=== PATIENT | male | born 1960 | race Caucasian/White ===

== ENCOUNTER → 2016-09-10 | Outpatient (CLI) | payer BC ==
[~2016-09-10] MED LIST: ACET-1256 PO; ACET-1311 PO; AMOX875T PO; BISA10SU3 PR; CGN1X PO; DIVA125C PO; DOCU100T PO; DPKSP125 PO; Enteral Nutrition Formula PO; HALO5TAB PO; HLDI IM; LANS30TA3 PO; MOMLX PO; MRLP17 PO; NRN600 PO; POLY335019 PO; QUET1TAB34 PO; QUET1TAB37 PO; SNK PO; SODIENE PR; SRQ100 PO; VENL1CAP92 PO; VENL75CA PO
[2016-09-10 09:41] LABS: BASO % 0.1 %; BASO ABS # 0.01 K/uL (0-0.2); COMPLETE YES; EOS % 1.1 %; HEMATOCRIT 42.2 % (42-52); IG% 0.3 %; LYMPH ABS # 1.07 K/uL (1.2-3.4); MEAN CELL VOLUME 88.8 fL (80-100); MEAN CORPUSCULAR HEMOGLOBIN 30.5 pg (25-34); MEAN CORPUSCULAR HGB CONC 34.4 g/dl (32-36); MEAN PLATELET VOLUME 9.7 fL (7.4-10.4); MONO % 7.8 %; NEUT % 79.7 %; PLATELET COUNT 123 K/uL (130-400); RED BLOOD COUNT 4.75 M/uL (4.7-6.1); WHITE BLOOD COUNT 9.72 K/uL (4.8-10.8)
== END | disposition home or self-care (01) ==
LOC: C.LABUPHEI 09:04
PROVIDERS: ATTEND Family Medicine
DX: G93.41 Metabolic encephalopathy (principal)

== ENCOUNTER → 2016-10-08 | Outpatient (CLI) | payer BC ==
[2016-10-08 08:49] LABS: ALT/SGPT 16 U/L (12-78); BLOOD UREA NITROGEN 16 mg/dl (7-18); BUN/CREATININE RATIO 20.3 (10-20); CALCIUM 9.1 mg/dl (8.5-10.1); CARBON DIOXIDE 32 mmol/L (21-32); CHLORIDE 104 mmol/L (98-107); CREATININE 0.78 mg/dl (0.60-1.40); GLUCOSE 97 mg/dl (70-99); POTASSIUM 4.5 mmol/L (3.5-5.1); SODIUM 144 mmol/L (136-145)
[2016-10-08 08:52] LABS: ALKALINE PHOSPHATASE 50 U/L (45-117); AST/SGOT 11 U/L (15-37)
--- NOTE | 2016-10-12 10:37 | CODING QUERY NO DIAGNOSIS ---
TREATMENT RENDERED WITHOUT A DIAGNOSIS : 1960 To promote full compliance with coding requirements relating to patient care, physician participation is requested in all cases of quality assurance engineer uncertainty. Please assist us with providing a diagnosis/symptom for the test(s) below: A diagnosis/symptom was not documented on your Order. A valid diagnosis/symptom is required to bill all insurances. Please remember that we are unable to code a diagnosis of rule out, probable, possible, questionable, or suspected. DOS: 10/08/16 Tests that require a diagnosis: * COMPREHENSIVE METABO DIAGNOSIS: * VALPROIC ACID (DEPAK_. DIAGNOSIS: Provider Signature: Date: Thank you M[facility] Information Management Once completed, please kindly fax back to [phone] For questions please call [phone]
== END ==
LOC: C.LABUPHEI 08:25
PROVIDERS: ATTEND Family Medicine
DX: G93.41 Metabolic encephalopathy (principal); F02.81 Dementia in other diseases classified elsewhere, unspecified severity, with behavioral disturbance

== ENCOUNTER → 2016-11-05 | Outpatient (CLI) | payer BC | LOC: C.LABUPHEI 09:44 | PROVIDERS: ATTEND Family Medicine | DX: R56.9 Unspecified convulsions (principal) ==

== ENCOUNTER → 2016-12-18 | Outpatient (CLI) | payer BC ==
[~2016-12-18] MED LIST changes: +BENZ-88 PO; -CGN1X PO; +DIVA1CAP2 PO; -DPKSP125 PO; +QUET-115 PO; -SRQ100 PO
== END | disposition home or self-care (01) ==
LOC: C.LABUPHEI 09:29
PROVIDERS: ATTEND Family Medicine
DX: R56.9 Unspecified convulsions (principal); F02.81 Dementia in other diseases classified elsewhere, unspecified severity, with behavioral disturbance

== ENCOUNTER → 2016-12-19 | Outpatient (CLI) | payer BC ==
[2016-12-19 08:47] LABS: ALB/GLOB RATIO 1.3 (0.9-2); ALKALINE PHOSPHATASE 49 U/L (45-117); ALT/SGPT 15 U/L (12-78); AST/SGOT 6 U/L (15-37); BLOOD UREA NITROGEN 16 mg/dl (7-18); BUN/CREATININE RATIO 19.8 (10-20); CARBON DIOXIDE 37 mmol/L (21-32); CHLORIDE 105 mmol/L (98-107); CREATININE 0.81 mg/dl (0.60-1.40); GLUCOSE 90 mg/dl (70-99); POTASSIUM 4.9 mmol/L (3.5-5.1); SODIUM 145 mmol/L (136-145)
[2016-12-19 09:05] LABS: CALCIUM 9.6 mg/dl (8.5-10.1)
== END | disposition home or self-care (01) ==
LOC: C.LABUPHEI 08:18
PROVIDERS: ATTEND Family Medicine
DX: R56.9 Unspecified convulsions (principal); Z51.81 Encounter for therapeutic drug level monitoring; Z79.899 Other long term (current) drug therapy

== ENCOUNTER → 2017-01-25 | Outpatient (CLI) | payer BC ==
[2017-01-25 09:12] LABS: HEMATOCRIT 44.3 % (42-52); MEAN CELL VOLUME 90.8 fL (80-100); MEAN CORPUSCULAR HEMOGLOBIN 30.9 pg (25-34); MEAN CORPUSCULAR HGB CONC 34.1 g/dl (32-36); MEAN PLATELET VOLUME 10.2 fL (7.4-10.4); PLATELET COUNT 124 K/uL (130-400); RED BLOOD COUNT 4.88 M/uL (4.7-6.1); WHITE BLOOD COUNT 4.69 K/uL (4.8-10.8)
[2017-01-25 09:23] LABS: BLOOD UREA NITROGEN 17 mg/dl (7-18); BUN/CREATININE RATIO 20.9 (10-20); CARBON DIOXIDE 31 mmol/L (21-32); CHLORIDE 106 mmol/L (98-107); CREATININE 0.81 mg/dl (0.60-1.40); GLUCOSE 83 mg/dl (70-99); POTASSIUM 4.4 mmol/L (3.5-5.1); SODIUM 143 mmol/L (136-145)
[2017-01-25 09:27] LABS: CALCIUM 9.3 mg/dl (8.5-10.1)
[2017-01-25 09:29] LABS: URINE APPEARANCE CLEAR (CLEAR); URINE BILIRUBIN NEG (NEG); URINE COLOR YELLOW; URINE NITRITE NEG (NEG); URINE PH 6.5 (4.5-7.5); URINE SPECIFIC GRAVITY 1.021 (1.000-1.030); UROBILINOGEN NEG (NEG)
[2017-01-25 09:45] LABS: MANUAL MICROSCOPIC REQUIRED? NO; REVIEW REQ? NO
== END ==
LOC: C.LABUPUNI 07:45
PROVIDERS: ATTEND Family Medicine
DX: F02.81 Dementia in other diseases classified elsewhere, unspecified severity, with behavioral disturbance (principal); R56.9 Unspecified convulsions; M62.81 Muscle weakness (generalized)

== ENCOUNTER → 2017-03-20 | Outpatient (CLI) | payer BC ==
[~2017-03-20] MED LIST changes: -BENZ-88 PO; +CGN1X PO; -DIVA1CAP2 PO; +DPKSP125 PO; -QUET-115 PO; +SRQ100 PO
--- NOTE | 2017-04-05 08:56 | CODING QUERY NO DIAGNOSIS ---
TREATMENT RENDERED WITHOUT A DIAGNOSIS 61 To promote full compliance with coding requirements relating to patient care, physician participation is requested in all cases of software project manager uncertainty. Please assist us with providing a diagnosis/symptom for the test(s) below: A diagnosis/symptom was not documented on your Order. A valid diagnosis/symptom is required to bill all insurances. Please remember that we are unable to code a diagnosis of rule out, probable, possible, questionable, or suspected. DOS 03/20/17 Tests that require a diagnosis: * DEPAKOTE LEVEL DIAGNOSIS: Provider Signature: Date: Thank you Tia Galindo Health Information Management Once completed, please kindly fax back to [phone] For questions please call [phone]
== END ==
LOC: C.LABUPUNI 08:02
PROVIDERS: ATTEND Family Medicine
DX: Z51.81 Encounter for therapeutic drug level monitoring (principal)

== ENCOUNTER 2017-03-22 19:21 | Inpatient (IN) | payer BC, OTHER ==
[~2017-03-22] VITALS: Ht 172.7 cm; Wt 76.2 kg
[~2017-03-22 19:21] MED LIST changes: -ACET-1311 PO; -AMOX875T PO; -BISA10SU3 PR; -CGN1X PO; -DIVA125C PO; -HALO5TAB PO; -MOMLX PO; -NRN600 PO; -POLY335019 PO; -SODIENE PR
[2017-03-22] MEDS ORDERED: VANCOMYCIN 1GM/270ML NSS IV STA (19:32)
[2017-03-22] MEDS ORDERED: SODIUM CHLORIDE 0.9% 1000ML 1,000 ML IV ONE (19:32)
[2017-03-22] MEDS ORDERED: PIPERACILLIN/TAZOBACTAM 4.5 GM/100ML D5W IV STA (19:32)
--- NOTE | 2017-03-22 19:42 | EMERGENCY ROOM VISIT NOTE ---
History Report prepared by Eloina Valdez Under the Supervision of: Dr. Iain Ordoñez M.D. First contact with patient: 19:29 Stated Complaint: SOB History of Present Illness This HPI is limited secondary to the mental status of the patient. The patient is a 56 year old male who presents to the Emergency Room via [facility] from [facility]. The staff at [facility] state that the patient was short of breath today, had a low blood pressure, and a temperature of 101.5. These symptoms have been ongoing for roughly the past 6-7 hours. The patient's blood pressure was in the 80's per paramedics. He received a 1 liter bolus of saline prior to arrival. The patient is a DNR. Source of History: EMS Onset: 6-7 hours Position: other (Global) Quality: other (SOB/Fever) Associated Symptoms: + fevers, + SOB Note: Low blood pressure Review of Systems ROS unobtainable secondary to mental status. Past Medical & Surgical Medical Problems: (1) Alzheimer disease (2) Dementia (3) Fecal impaction (4) Hernia (5) Lactic acid increased (6) Past Psych Meds (7) Sepsis Surgical Problems: (1) S/P appendectomy Family History No family history noted Social History Smoking Status: Former Smoker Alcohol Use: none Drug Use: none Marital Status: Housing Status: assisted living Occupation Status: disabled Current/Historical Medications Scheduled Acetaminophen (Tylenol), 650 MG PO HS Benztropine Mesylate (Benztropine Mesylate), 1 MG PO BID Divalproex Sodium (Depakote Sprinkle), 500 MG PO BID Docusate Sodium (Dok), 200 MG PO BID Gabapentin (Gabapentin), 600 MG PO TID Haloperidol (Haldol), 5 MG PO BID Lansoprazole (Prevacid Solutab), 30 MG PO QAM Polyethylene Glycol 3350 (Miralax), 17 GM PO BID Senna (Senna Lax), 8.6 MG PO BID Venlafaxine Hcl (Effexor Xr), 75 MG PO HS [Enteral Nutrition Formula], 1 CAN PO TIDM Scheduled PRN Acetaminophen (Tylenol), 650 MG PO Q6 PRN for Pain Bisacodyl (Dulcolax), 1 SUPP VT DAILY PRN for Constipation Magnesium Hydroxide (Milk of Magnesia), 30 ML PO DAILY PRN for Constipation Sodium Phosphate/Biphosphate (Fleet Enema), 1 EA VT DAILY PRN for Constipation Allergies Coded Allergies: No Known Allergies (Verified , 07/25/16) Physical Exam Vital Signs Date Time Temp Pulse Resp B/P (MAP) Pulse Ox O2 Delivery O2 Flow Rate FiO2 03/22/17 23:57 91 20 83/52 96 Nasal Cannula 2.0 03/22/17 23:31 97 16 73/53 94 Nasal Cannula 2.0 03/22/17 23:00 100 20 82/53 94 Nasal Cannula 2.0 03/22/17 22:56 38.0 NIBP 03/22/17 22:30 94/57 03/22/17 22:21 96 14 94 Nasal Cannula 2.0 03/22/17 22:01 100/65 03/22/17 21:51 107 28 95 Nasal Cannula 2.0 03/22/17 21:31 103/77 03/22/17 21:21 109 23 93 Room Air 03/22/17 21:17 87/54 03/22/17 20:33 39.1 117 21 95/75 96 Nasal Cannula 4.0 03/22/17 20:30 95/75 03/22/17 20:21 116 27 96 03/22/17 20:01 93/60 03/22/17 19:51 115 24 96 03/22/17 19:40 117 20 93/60 96 Nasal Cannula 4.0 03/22/17 19:40 97 Nasal Cannula 4.0 03/22/17 19:39 96 Nasal Cannula 4.0 03/22/17 19:32 116 03/22/17 19:31 111/68 Physical Exam GENERAL: Patient is in no acute distress. HEENT: No acute trauma, normocephalic atraumatic, mucous membranes moist, no nasal congestion, no scleral icterus. Pupils are equal and reactive to light. NECK: No stridor, no adenopathy, no meningismus, trachea is midline. LUNGS: Breath sounds are equal and clear when auscultated anteriorly. No respiratory distress on exam. HEART: Tachycardic with regular rhythm. No murmurs. ABDOMEN: Soft, nontender, bowel sounds positive, no hernias, no peritonitis. EXTREMITIES: No cyanosis or edema, full range of motion of all the joints without pain or difficulty, no signs for acute trauma. NEUROLOGIC: Patient is somnolent, but does move all extremities. Patient is showing somnolent. Patient jumps when touched. SKIN: No rash, no jaundice, no diaphoresis. Medical Decision & Procedures ER Provider Diagnostic Interpretation: Radiology results as stated below per my review and radiologist interpretation: CHEST ONE VIEW PORTABLE CLINICAL HISTORY: Sepsis TORUS OF BREATH COMPARISON STUDY: 07/27/2016 FINDINGS: The heart is top normal in size. There is nonspecific interstitial thickening. There are left basilar atelectatic changes. There is no lobar consolidation.[ No pleural effusions are visualized. IMPRESSION: Mild interstitial thickening. An element of mild pulmonary vascular congestion cannot be excluded. No evidence of lobar consolidation Electronically signed by: Anson Olvera M.D. 03/22/2017 8:05 PM Dictated Date/Time: 03/22/2017 8:[address] HEAD WITHOUT CONTRAST (CT) CLINICAL HISTORY: HEADACHE SHORTNESS OF BREATH COMPARISON STUDY: 07/25/2016 TECHNIQUE: Axial CT of the brain is performed from the vertex to the skull base. IV contrast was not administered for this examination. A dose lowering technique was utilized adhering to the principles of ALARA. CT DOSE: 1807.48 mGy.cm FINDINGS: No intra or extra-axial mass lesions are visualized. There is no CT evidence of acute cortical infarction. There is no evidence of midline shift. There is no acute hemorrhage. No calvarial fractures are visualized. There are patchy white matter hypodensities likely on a small vessel basis. There is no evidence of pathologic ventricular dilatation. There is no evidence of acute sinusitis There is stable small scalp nodules, possibly representing sebaceous cysts IMPRESSION: No acute intracranial findings Electronically signed by: Anson Olvera M.D. 03/22/2017 8:44 PM Dictated Date/Time: 03/22/2017 8:42 PM Laboratory Results 03/22/17 19:11 Red Blood Count 4.89, Mean Corpuscular Volume 89.8, Mean Corpuscular Hemoglobin 30.7, Mean Corpuscular Hemoglobin Concent 34.2, Mean Platelet Volume 9.9, Neutrophils (%) (Auto) 81.7, Lymphocytes (%) (Auto) 6.7, Monocytes (%) (Auto) 11.1, Eosinophils (%) (Auto) 0.2, Basophils (%) (Auto) 0.1, Neutrophils # (Auto ) 8.72, Lymphocytes # (Auto) 0.72, Monocytes # (Auto) 1.19, Eosinophils # (Auto ) 0.02, Basophils # (Auto) 0.01 03/22/17 19:11 Test 03/22/17 19:11 03/22/17 20:03 03/22/17 20:30 White Blood Count 10.68 K/uL (4.8-10.8) Red Blood Count 4.89 M/uL (4.7-6.1) Hemoglobin 15.0 g/dL (14.0-18.0) Hematocrit 43.9 % (42-52) Mean Corpuscular Volume 89.8 fL (80-100) Mean Corpuscular Hemoglobin 30.7 pg (25-34) Mean Corpuscular Hemoglobin Concent 34.2 g/dl (32-36) Platelet Count 117 K/uL (130-400) Mean Platelet Volume 9.9 fL (7.4-10.4) Neutrophils (%) (Auto) 81.7 % Lymphocytes (%) (Auto) 6.7 % Monocytes (%) (Auto) 11.1 % Eosinophils (%) (Auto) 0.2 % Basophils (%) (Auto) 0.1 % Neutrophils # (Auto) 8.72 K/uL (1.4-6.5) Lymphocytes # (Auto) 0.72 K/uL (1.2-3.4) Monocytes # (Auto) 1.19 K/uL (0.11-0.59) Eosinophils # (Auto) 0.02 K/uL (0-0.5) Basophils # (Auto) 0.01 K/uL (0-0.2) RDW Standard Deviation 43.8 fL (36.4-46.3) RDW Coefficient of Variation 13.3 % (11.5-14.5) Immature Granulocyte % (Auto) 0.2 % Immature Granulocyte # (Auto) 0.02 K/uL (0.00-0.02) Prothrombin Time 11.0 SECONDS (9.0-12.0) Prothromb Time International Ratio 1.0 (0.9-1.1) Activated Partial Thromboplast Time 27.1 SECONDS (21.0-31.0) Partial Thromboplastin Ratio 1.0 Anion Gap 5.0 mmol/L (3-11) Estimated GFR () 109.6 Estimated GFR (Non- 94.5 BUN/Creatinine Ratio 18.9 (10-20) Calcium Level 8.9 mg/dl (8.5-10.1) Magnesium Level 1.9 mg/dl (1.8-2.4) Total Bilirubin 0.7 mg/dl (0.2-1) Aspartate Amino Transf (AST/SGOT) 22 U/L (15-37) Alanine Aminotransferase (ALT/SGPT) 32 U/L (12-78) Alkaline Phosphatase 51 U/L (45-117) Total Protein 6.6 gm/dl (6.4-8.2) Albumin 3.4 gm/dl (3.4-5.0) Globulin 3.2 gm/dl (2.5-4.0) Albumin/Globulin Ratio 1.1 (0.9-2) Valproic Acid (Depakene) Level 40 mcg/ml (50-100) Bedside Lactic Acid Venous 1.44 mmol/L (0.90-1.70) Urine Color DK YELLOW Urine Appearance CLEAR (CLEAR) Urine pH 5.0 (4.5-7.5) Urine Specific [place] 1.032 (1.000-1.030) Urine Protein NEG (NEG) Urine Glucose (UA) NEG (NEG) Urine Ketones TRACE (NEG) Urine Occult Blood NEG (NEG) Urine Nitrite NEG (NEG) Urine Bilirubin NEG (NEG) Urine Urobilinogen NEG (NEG) Urine Leukocyte Esterase NEG (NEG) Urine WBC (Auto) 1-5 /hpf (0-5) Urine RBC (Auto) 0-4 /hpf (0-4) Urine Hyaline Casts (Auto) 1-5 /lpf (0-5) Urine Epithelial Cells (Auto) 20-30 /lpf (0-5) Urine Bacteria (Auto) NEG (NEG) Laboratory results reviewed by me. Medications Administered Medications (Trade) Dose Ordered Sig/Helene Route Start Time Stop Time Status Last Admin Dose Admin Sodium Chloride 1,000 ml @ 999 mls/hr Q1H1M ONCE IV 03/22/17 19:32 03/22/17 20:32 DC 03/22/17 21:10 999 MLS/HR Piperacillin Sod/ Tazobactam Sod (Zosyn Iv) 4.5 gm ONE STAT IV 03/22/17 19:32 03/22/17 19:38 DC 03/22/17 21:10 4.5 GM Vancomycin HCl (Vancomycin 1gm/ 270ml Nss) 1 gm ONE STAT IV 03/22/17 19:32 03/22/17 19:38 DC 03/22/17 22:57 1 GM Acetaminophen (Tylenol Supp) 325 mg STK-MED ONCE VT 03/22/17 21:03 03/22/17 21:04 DC 03/22/17 21:11 325 MG Acetaminophen (Tylenol Supp) 650 mg STK-MED ONCE VT 03/22/17 21:03 03/22/17 21:04 DC 03/22/17 21:11 650 MG Ketorolac Tromethamine (Toradol Inj) 15 mg NOW STAT IV 03/22/17 21:58 03/22/17 21:59 DC 03/22/17 22:58 15 MG Sodium Chloride 1,000 ml @ 200 mls/hr Q5H STAT IV 03/22/17 22:00 03/23/17 02:59 03/22/17 22:54 200 MLS/HR ECG Indication: SOB/dyspnea Rate (beats per minute): 117 Rhythm: sinus tachycardia Findings: no acute ischemic change, no ectopy, other (Chronic Changes present) ED Course 1928: The patient was evaluated in room B7. A complete history and physical exam was performed. 1931: Ordered Vancomycin HCl 1 gm IV, Zosyn 4.5 gm IV, Sodium Chloride 1000 mL @ 999 mL/hr IV. 2055: I discussed the case with the family at this time. 2058: I discussed the case with Dr. Winslow - [facility] [place] Hospitalist, at this time. She will evaluate the patient for further treatment. 2102: Ordered Acetaminophen 650 mg VT. Medical Decision Differential Diagnosis includes; Sepsis, pneumonia, aspiration, stroke, intracranial bleed, UTI, dehydration, electrolyte imbalance. There is no leukocytosis or concerning anemia. No significant electrolyte abnormality, kidney failure or hepatitis. Lactic acid level is not elevated making severe sepsis less likely. Urinalysis does not show infection. On exam , there was no cellulitis. Blood cultures are pending. Chest x-ray shows some congestion at the bases, possibly consistent with atelectasis or maybe pneumonia. EKG shows a sinus tachycardia, no acute ischemia. Brain CT shows no acute bleed or mass effect. Valproic acid level was not toxic. The patient presents with a fever, some shortness of breath and a low blood pressure. He had received a liter of IV saline prior to arrival. A second liter was given as a bolus. He was given rectal Tylenol and IV Toradol. He received IV Zosyn and IV vancomycin as antibiotic coverage. The patient appears to be septic, likely from a respiratory source. He is somewhat dehydrated as well. He is a DO NOT RESUSCITATE. I spoke with his family at length. Admission/observation is warranted. I spoke to case management. The on-call hospitalist was consulted. Medication Reconcilliation Current Medication List: was personally reviewed by me Blood Pressure Screening Patient's blood pressure: Normal blood pressure Consults Time Called: 2049 Consulting Physician: Dr. Nayla GALLEGO Hospitalist Returned Call: 2058 I discussed the case with Dr. Nayla GALLEGO Hospitalist, at this time. She will evaluate the patient for further treatment. Impression Primary Impression: Sepsis Additional Impressions: Dehydration Pneumonia Scribe Attestation The scribe's documentation has been prepared under my direction and personally reviewed by me in its entirety. I confirm that the note above accurately reflects all work, treatment, procedures, and medical decision making performed by me. Departure Information Dispostion Being Evaluated By Hospitalist Referrals Olive Dobson (PCP) Problem Qualifiers
[2017-03-22 19:49] LABS: BASO % 0.1 %; BASO ABS # 0.01 K/uL (0-0.2); COMPLETE YES; EOS % 0.2 %; HEMATOCRIT 43.9 % (42-52); IG% 0.2 %; LYMPH % 6.7 %; LYMPH ABS # 0.72 K/uL (1.2-3.4); MEAN CELL VOLUME 89.8 fL (80-100); MEAN CORPUSCULAR HEMOGLOBIN 30.7 pg (25-34); MEAN CORPUSCULAR HGB CONC 34.2 g/dl (32-36); MEAN PLATELET VOLUME 9.9 fL (7.4-10.4); MONO % 11.1 %; NEUT % 81.7 %; PLATELET COUNT 117 K/uL (130-400); RED BLOOD COUNT 4.89 M/uL (4.7-6.1); WHITE BLOOD COUNT 10.68 K/uL (4.8-10.8)
--- NOTE | 2017-03-22 20:07 | DIAGNOSTIC IMAGING REPORT ---
CHEST ONE VIEW PORTABLE CLINICAL HISTORY: Sepsis TORUS OF BREATH COMPARISON STUDY: 07/27/2016 FINDINGS: The heart is top normal in size. There is nonspecific interstitial thickening. There are left basilar atelectatic changes. There is no lobar consolidation.[ No pleural effusions are visualized. IMPRESSION: Mild interstitial thickening. An element of mild pulmonary vascular congestion cannot be excluded. No evidence of lobar consolidation Electronically signed by: Anson Olvera M.D. 03/22/2017 8:05 PM Dictated Date/Time: 03/22/2017 8:04 PM
[2017-03-22 20:08] LABS: ALT/SGPT 32 U/L (12-78); AST/SGOT 22 U/L (15-37); BLOOD UREA NITROGEN 17 mg/dl (7-18); BUN/CREATININE RATIO 18.9 (10-20); CALCIUM 8.9 mg/dl (8.5-10.1); CARBON DIOXIDE 31 mmol/L (21-32); CHLORIDE 104 mmol/L (98-107); CREATININE 0.91 mg/dl (0.60-1.40); GLUCOSE 117 mg/dl (70-99); MAGNESIUM 1.9 mg/dl (1.8-2.4); POTASSIUM 3.9 mmol/L (3.5-5.1); SODIUM 140 mmol/L (136-145)
[2017-03-22 20:10] LABS: ALB/GLOB RATIO 1.1 (0.9-2); ALKALINE PHOSPHATASE 51 U/L (45-117)
--- NOTE | 2017-03-22 20:45 | DIAGNOSTIC IMAGING REPORT ---
CT HEAD WITHOUT CONTRAST (CT) CLINICAL HISTORY: HEADACHE SHORTNESS OF BREATH COMPARISON STUDY: 07/25/2016 TECHNIQUE: Axial CT of the brain is performed from the vertex to the skull base. IV contrast was not administered for this examination. A dose lowering technique was utilized adhering to the principles of ALARA. CT DOSE: 1807.48 mGy.cm FINDINGS: No intra or extra-axial mass lesions are visualized. There is no CT evidence of acute cortical infarction. There is no evidence of midline shift. There is no acute hemorrhage. No calvarial fractures are visualized. There are patchy white matter hypodensities likely on a small vessel basis. There is no evidence of pathologic ventricular dilatation. There is no evidence of acute sinusitis There is stable small scalp nodules, possibly representing sebaceous cysts IMPRESSION: No acute intracranial findings Electronically signed by: Anson Olvera M.D. 03/22/2017 8:44 PM Dictated Date/Time: 03/22/2017 8:42 PM
[2017-03-22 20:46] LABS: REVIEW REQ? NO; URINE APPEARANCE CLEAR (CLEAR); URINE BILIRUBIN NEG (NEG); URINE COLOR DK YELLOW; URINE EPITHELIAL CELL AUTO 20-30 /lpf (0-5); URINE NITRITE NEG (NEG); URINE SPECIFIC GRAVITY 1.032 (1.000-1.030); UROBILINOGEN NEG (NEG); ZZURINE CULT IF INDIC CATH NO
[2017-03-22 20:47] LABS: MANUAL MICROSCOPIC REQUIRED? NO
[2017-03-22] MEDS ORDERED: ACETAMINOPHEN 650 MG SUPP PR ONE (21:03)
[2017-03-22] MEDS ORDERED: ACETAMINOPHEN 325 MG SUPP PR ONE (21:03)
[2017-03-22] MEDS ORDERED: ACETAMINOPHEN 650 MG SUPP PR STA (21:10)
[2017-03-22] MEDS ORDERED: ACETAMINOPHEN 325 MG SUPP PR STA (21:10)
[2017-03-22] MEDS ORDERED: NRN600 PO (21:21)
[2017-03-22] MEDS ORDERED: BISA10SU3 PR (21:21)
[2017-03-22] MEDS ORDERED: POLY335019 PO (21:21)
[2017-03-22] MEDS ORDERED: DIVA125C PO (21:21)
[2017-03-22] MEDS ORDERED: HALO5TAB PO (21:21)
[2017-03-22] MEDS ORDERED: SODIENE PR (21:21)
[2017-03-22] MEDS ORDERED: MOMLX PO (21:21)
[2017-03-22] MEDS ORDERED: CGN1X PO (21:21)
[2017-03-22] MEDS ORDERED: ACET-1311 PO ×2 (21:21)
[2017-03-22] MEDS ORDERED: KETOROLAC TROMETHAMINE 30 MG/ML VIAL IV STA (21:58)
[2017-03-22] MEDS ORDERED: SODIUM CHLORIDE 0.9% 1000ML 1,000 ML IV STA (22:00)
[2017-03-22] MEDS ORDERED: POLYETHYLENE (MIRALAX) 17 GM PACK PO PRN (22:45)
[2017-03-22] MEDS ORDERED: ONDANSETRON INJ 2 MG/ML 2 ML VIAL IV PRN (22:45)
[2017-03-22] MEDS ORDERED: ALUMINUM/MAGNESIUM/SIMETH (MAALOX MAX) 30 ML UDC PO PRN (22:45)
[2017-03-22] MEDS ORDERED: MAGNESIUM HYDROXIDE SUSP 30 ML UDC PO PRN (22:45)
[2017-03-22] MEDS ORDERED: ACETAMINOPHEN 325 MG TAB PO PRN (22:45)
[2017-03-22] MEDS ORDERED: NITROGLYCERIN 0.4 MG SL PER TAB CHARGE SL PRN (22:45)
--- NOTE | 2017-03-22 22:57 | History and Physical ---
History & Physical Date & Time of Service: Mar 22, 2017 at 22:40 Chief Complaint: SOB Primary Care Physician: Alin Rodriguez M.D. History of Present Illness Source: family 56-year-old male with a past medical history of early onset dementia currently a resident at [facility] presented to the ER after he was found to be short of breath with low blood pressure and a temperature of 101.5 Fahrenheit. The patient is nonverbal at baseline and history was mostly obtained from ER notes and from family at bedside. Per his sister, he was noted to have a cough this afternoon and later developed a fever. 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 Non-bleeding gastric ulcer Surgical Problems: (1) S/P appendectomy Family History No family history noted Social History Smoking Status: Unknown if Ever Smoked Drug Use: none Marital Status: Housing status: assisted living Occupational Status: disabled Immunizations History of Influenza Vaccine: Yes History of Tetanus Vaccine?: YES-1998 History of Pneumococcal: No History of Hepatitis B Vaccine: Unknown Multi-Drug Resistant Organisms History of MDRO: No Allergies Coded Allergies: No Known Allergies (Verified , 07/25/16) Home Medications Scheduled Acetaminophen (Tylenol), 650 MG PO HS Benztropine Mesylate (Benztropine Mesylate), 1 MG PO BID Divalproex Sodium (Depakote Sprinkle), 500 MG PO BID Docusate Sodium (Dok), 200 MG PO BID Gabapentin (Gabapentin), 600 MG PO TID Haloperidol (Haldol), 5 MG PO BID Lansoprazole (Prevacid Solutab), 30 MG PO QAM Polyethylene Glycol 3350 (Miralax), 17 GM PO BID Senna (Senna Lax), 8.6 MG PO BID Venlafaxine Hcl (Effexor Xr), 75 MG PO HS [Enteral Nutrition Formula], 1 CAN PO TIDM Scheduled PRN Acetaminophen (Tylenol), 650 MG PO Q6 PRN for Pain Bisacodyl (Dulcolax), 1 SUPP NM DAILY PRN for Constipation Magnesium Hydroxide (Milk of Magnesia), 30 ML PO DAILY PRN for Constipation Sodium Phosphate/Biphosphate (Fleet Enema), 1 EA NM DAILY PRN for Constipation Review of Systems Review of systems is limited as the patient is nonverbal at baseline Constitutional: + fever Respiratory: + cough, + shortness of breath Cardiovascular: No chest pain Abdomen: No pain, No nausea, No vomiting Musculoskeletal: No joint pain Genitourinary - Male: No hematuria, No dysuria Physical Exam Vital Signs Date Time Temp Pulse Resp B/P (MAP) Pulse Ox O2 Delivery O2 Flow Rate FiO2 03/22/17 20:33 39.1 117 21 95/75 96 Nasal Cannula 4.0 03/22/17 19:40 117 20 93/60 96 Nasal Cannula 4.0 03/22/17 19:40 97 Nasal Cannula 4.0 03/22/17 19:39 96 Nasal Cannula 4.0 03/22/17 19:32 116 General Appearance: no apparent distress Neck: supple Respiratory/Chest: no respiratory distress, no accessory muscle use, + decreased breath sounds Cardiovascular: + tachycardia Abdomen/GI: non tender, soft Extremities/Musculoskelatal: no pedal edema Neurologic/Psych: + pertinent finding (drowsy, non verbal at baseline) Skin: normal color Diagnostics Laboratory Results Results Past 24 Hours Test 03/22/17 19:11 03/22/17 20:03 03/22/17 20:30 Range/Units White Blood Count 10.68 4.8-10.8 K/uL Red Blood Count 4.89 4.7-6.1 M/uL Hemoglobin 15.0 14.0-18.0 g/dL Hematocrit 43.9 42-52 % Mean Corpuscular Volume 89.8 80-100 fL Mean Corpuscular Hemoglobin 30.7 25-34 pg Mean Corpuscular Hemoglobin Concent 34.2 32-36 g/dl Platelet Count 117 130-400 K/uL Mean Platelet Volume 9.9 7.4-10.4 fL Neutrophils (%) (Auto) 81.7 % Lymphocytes (%) (Auto) 6.7 % Monocytes (%) (Auto) 11.1 % Eosinophils (%) (Auto) 0.2 % Basophils (%) (Auto) 0.1 % Neutrophils # (Auto) 8.72 1.4-6.5 K/uL Lymphocytes # (Auto) 0.72 1.2-3.4 K/uL Monocytes # (Auto) 1.19 0.11-0.59 K/uL Eosinophils # (Auto) 0.02 0-0.5 K/uL Basophils # (Auto) 0.01 0-0.2 K/uL RDW Standard Deviation 43.8 36.4-46.3 fL RDW Coefficient of Variation 13.3 11.5-14.5 % Immature Granulocyte % (Auto) 0.2 % Immature Granulocyte # (Auto) 0.02 0.00-0.02 K/uL Prothrombin Time 11.0 9.0-12.0 SECONDS Prothromb Time International Ratio 1.0 0.9-1.1 Activated Partial Thromboplast Time 27.1 21.0-31.0 SECONDS Partial Thromboplastin Ratio 1.0 Sodium Level 140 136-145 mmol/L Potassium Level 3.9 3.5-5.1 mmol/L Chloride Level 104 98-107 mmol/L Carbon Dioxide Level 31 21-32 mmol/L Anion Gap 5.0 3-11 mmol/L Blood Urea Nitrogen 17 7-18 mg/dl Creatinine 0.91 0.60-1.40 mg/dl Estimated GFR () 109.6 Estimated GFR (Non- 94.5 BUN/Creatinine Ratio 18.9 10-20 Random Glucose 117 70-99 mg/dl Calcium Level 8.9 8.5-10.1 mg/dl Magnesium Level 1.9 1.8-2.4 mg/dl Total Bilirubin 0.7 0.2-1 mg/dl Aspartate Amino Transf (AST/SGOT) 22 15-37 U/L Alanine Aminotransferase (ALT/SGPT) 32 12-78 U/L Alkaline Phosphatase 51 45-117 U/L Total Protein 6.6 6.4-8.2 gm/dl Albumin 3.4 3.4-5.0 gm/dl Globulin 3.2 2.5-4.0 gm/dl Albumin/Globulin Ratio 1.1 0.9-2 Valproic Acid (Depakene) Level 40 50-100 mcg/ml Bedside Lactic Acid Venous 1.44 0.90-1.70 mmol/L Urine Color DK YELLOW Urine Appearance CLEAR CLEAR Urine pH 5.0 4.5-7.5 Urine Specific [place] 1.032 1.000-1.030 Urine Protein NEG NEG Urine Glucose (UA) NEG NEG Urine Ketones TRACE NEG Urine Occult Blood NEG NEG Urine Nitrite NEG NEG Urine Bilirubin NEG NEG Urine Urobilinogen NEG NEG Urine Leukocyte Esterase NEG NEG Urine WBC (Auto) 1-5 0-5 /hpf Urine RBC (Auto) 0-4 0-4 /hpf Urine Hyaline Casts (Auto) 1-5 0-5 /lpf Urine Epithelial Cells (Auto) 20-30 0-5 /lpf Urine Bacteria (Auto) NEG NEG Microbiology Results 03/22/17 Blood Culture, Received Pending 03/22/17 Blood Culture, Received Pending Diagnostic Radiology CT HEAD WITHOUT CONTRAST (CT) CLINICAL HISTORY: HEADACHE SHORTNESS OF BREATH COMPARISON STUDY: 07/25/2016 TECHNIQUE: Axial CT of the brain is performed from the vertex to the skull base. IV contrast was not administered for this examination. A dose lowering technique was utilized adhering to the principles of ALARA. CT DOSE: 1807.48 mGy.cm FINDINGS: No intra or extra-axial mass lesions are visualized. There is no CT evidence of acute cortical infarction. There is no evidence of midline shift. There is no acute hemorrhage. No calvarial fractures are visualized. There are patchy white matter hypodensities likely on a small vessel basis. There is no evidence of pathologic ventricular dilatation. There is no evidence of acute sinusitis There is stable small scalp nodules, possibly representing sebaceous cysts IMPRESSION: No acute intracranial findings Electronically signed by: Anson Olvera M.D. 03/22/2017 8:44 PM CHEST ONE VIEW PORTABLE CLINICAL HISTORY: Sepsis TORUS OF BREATH COMPARISON STUDY: 07/27/2016 FINDINGS: The heart is top normal in size. There is nonspecific interstitial thickening. There are left basilar atelectatic changes. There is no lobar consolidation.[ No pleural effusions are visualized. IMPRESSION: Mild interstitial thickening. An element of mild pulmonary vascular congestion cannot be excluded. No evidence of lobar consolidation Electronically signed by: Anson Olvera M.D. 03/22/2017 8:05 PM Dictated Date/Time: 03/22/2017 8:04 PM Impression Assessment and Plan 56-year-old male with a past medical history of early onset dementia currently a resident at [facility] presented to the ER after he was found to be short of breath with low blood pressure and a temperature of 101.5 Fahrenheit. Sepsis likely secondary to pneumonia: - Chest x-ray: : Mild interstitial thickening. An element of mild pulmonary vascular congestion cannot be excluded. No evidence of lobar consolidation - Lactic acid at 1.44 - UA unremarkable - Continue vancomycin and Zosyn - Repeat chest x-ray in a.m. - Was initially hypotensive and received a total of 3 L of NSS - Continue IV fluids - Tylenol as needed for fever - Aspiration precautions and speech eval ( please avoid plastic spoons as the patient has a history of swallowing a part of the spoon during previous admission) - Oxygen per protocol Early onset dementia: - Continue benztropine, Depakote, gabapentin, Haldol Chronic constipation: - Continue home bowel regimen DO NOT RESUSCITATE DVT prophylaxis: SCDs Disposition: Admitted to telemetry Level of Care Telemetry Resuscitation Status DO NOT RESUSCITATE VTE Prophylaxis VTE Risk Assessment Done? Y/N: Yes Risk Level: Moderate Given or contraindicated: SCD's Resident Tracking Resident Involvement: Resident Care Provided Care Provided: Adult Hospital Medicine Reviewed: Pt Seen/Exam by Me History Resident Physician Supervision Note: I interviewed and examined the patient. Discussed with Dr. Mcqueen and agree with findings and plan as documented in the note. Any exceptions or clarifications are listed here: Patient is a 56-year-old male with a history of early-onset dementia and mood disorder who presents with cough, hypoxia, fever and hypotension from the longterm. His hypotension improved with IV fluid resuscitation in the ER and his lactate was 1.4. He is admitted for most likely left lower lobe pneumonia although chest x-ray not entirely clear for this, but based more on clinical presentation. Vitals reviewed NAD, sleeping during my exam and did not respond to verbal stimulus-family reports he sleeps most of the day Tongue appears dry Regular rate and rhythm, no murmurs gallops or rubs Crackles at the bases, otherwise clear to auscultation bilaterally Abdomen positive bowel sounds soft nontender nondistended Extremities no edema, 2 posterior cells pedis pulses Skin no rashes 56-year-old male with dementia who is mostly nonverbal and mood disorder who presents with HCAP. -Treated with Zosyn and vancomycin -Repeat chest x-ray in the morning -Continue home medications for mood stabilization -Supportive care for dementia -Add Lovenox for DVT prophylaxis Documented By: Vanesa Winslow
[2017-03-22] MEDS ORDERED: SOD PHOSPHATE/SOD BIPHOSPHATE ENEMA 132 ML BTL PR PRN (23:15)
[2017-03-22] MEDS ORDERED: BISACODYL 10 MG SUPP PR PRN (23:15)
[2017-03-23] VITALS (9 sets, daily range): BP systolic 98–128; BP diastolic 45–88; PULSE 94–115; TEMP 36.6–38.4; O2SAT 93–98; Ht 172.7 cm; Wt 76.2 kg
[2017-03-23] MEDS: SODIUM CHLORIDE 0.9% 1000ML 1,000 ML IV SCH ×3 (01:35→19:51)
[2017-03-23] MEDS ORDERED: PIPERACILL/TAZOBAC CONSULT ACTIVE PRN (01:45)
[2017-03-23] MEDS ORDERED: VANCOMYCIN CONSULT ACTIVE PRN (01:45)
[2017-03-23] MEDS: PIPERACILL/TAZOBAC IV 3.375 GM in DEXTROSE 5% 100ML 100 ML IV SCH ×3 (03:08→17:12)
[2017-03-23] MEDS: VANCOMYCIN INJ 1,250 MG in SODIUM CHLORIDE 0.9% 250ML 250 ML IV SCH ×3 (03:08→23:40)
[2017-03-23 06:28] LABS: HEMATOCRIT 37.8 % (42-52); MEAN CORPUSCULAR HEMOGLOBIN 30.2 pg (25-34); MEAN CORPUSCULAR HGB CONC 33.6 g/dl (32-36); WHITE BLOOD COUNT 7.39 K/uL (4.8-10.8)
[2017-03-23 07:00] LABS: BUN/CREATININE RATIO 20.6 (10-20); CALCIUM 8.2 mg/dl (8.5-10.1); CREATININE 0.87 mg/dl (0.60-1.40); POTASSIUM 3.8 mmol/L (3.5-5.1)
[2017-03-23 07:15] LABS: MEAN PLATELET VOLUME 9.6 fL (7.4-10.4); PLATELET COUNT 90 K/uL (130-400); PLT ESTIMATE DECREASED
[2017-03-23] MEDS: BOOST VANILLA PO SCH ×6 (07:30→16:52)
--- NOTE | 2017-03-23 08:03 | DIAGNOSTIC IMAGING REPORT ---
CHEST ONE VIEW PORTABLE CLINICAL HISTORY: Possible pneumonia. COMPARISON STUDY: Chest radiograph March 22, 2017. FINDINGS: There is no pneumothorax or pleural effusion. Right infrahilar opacity favors atelectasis. There is no consolidation to suggest pneumonia. Cardiomediastinal silhouette is normal. Lung volumes are diminished. There is no evidence of pulmonary edema. There may be pulmonary vascular congestion. IMPRESSION: Bibasilar opacities. Atelectasis is favored although an infectious process could appear similar. Electronically signed by: Bebo Candelaria M.D. 03/23/2017 8:02 AM Dictated Date/Time: 03/23/2017 7:59 AM
[2017-03-23] MEDS: DOCUSATE SODIUM 100 MG CAP PO SCH ×2 (09:00→19:47)
[2017-03-23] MEDS: SENNA 8.6 MG TAB PO SCH ×2 (09:00→19:48)
[2017-03-23] MEDS: POLYETHYLENE (MIRALAX) 17 GM PACK PO SCH ×2 (09:00→19:48)
[2017-03-23] MEDS: LANSOPRAZOLE SOLUTAB 30 MG PO SCH (09:00)
[2017-03-23] MEDS: BENZTROPINE MESYLATE 1 MG TAB PO SCH ×2 (09:00→19:47)
[2017-03-23] MEDS: GABAPENTIN 600 MG TAB PO SCH ×3 (09:00→19:49)
[2017-03-23] MEDS: DIVALPROEX SODIUM SPRINKLE 125 MG CAP PO SCH ×2 (09:00→19:49)
[2017-03-23] MEDS: HALOPERIDOL 5 MG TAB PO SCH ×2 (09:00→19:50)
--- NOTE | 2017-03-23 09:18 | Progress Note ---
Subjective Date of Service: Mar 23, 2017. Subjective Pt evaluation today including: conversation w/ family, physical exam, chart review, lab review, review of studies, conversation w/ bridal stylist sales consultant, review of inpatient medication list Voiding: incontinence Was mumbling, close eyes, only minimally open eyes, not conversation, no follow- up commands, talked to this is not new it is his baseline, the peak of spiking fever has coming down, nurse reported patient is urine incontinent Some cough from postnasal drip Problem List Medical Problems: (1) Abdominal pain Status: Acute (2) Agitation Status: Acute (3) Ascites Status: Acute (4) Constipation Status: Acute (5) Dehydration Status: Acute (6) Dehydration Status: Acute (7) Fever Status: Acute (8) Pneumonia Status: Acute Review of Systems Constitutional: + problem reported (not able to obtain because of mental status change) Objective Vital Signs Date Time Temp Pulse Resp B/P (MAP) Pulse Ox O2 Delivery O2 Flow Rate FiO2 03/23/17 07:30 37.6 95 20 106/45 (65) 93 Nasal Cannula 2.0 03/23/17 04:24 36.8 95 20 123/75 (91) 95 Nasal Cannula 2.0 03/23/17 04:00 Nasal Cannula 2.0 03/23/17 00:51 36.9 94 18 98/50 96 Nasal Cannula 2.0 03/22/17 23:57 91 20 83/52 96 Nasal Cannula 2.0 03/22/17 23:31 97 16 73/53 94 Nasal Cannula 2.0 03/22/17 23:00 100 20 82/53 94 Nasal Cannula 2.0 03/22/17 22:56 38.0 NIBP 03/22/17 22:30 94/57 03/22/17 22:21 96 14 94 Nasal Cannula 2.0 03/22/17 22:01 100/65 03/22/17 21:51 107 28 95 Nasal Cannula 2.0 03/22/17 21:31 103/77 03/22/17 21:21 109 23 93 Room Air 03/22/17 21:17 87/54 03/22/17 20:33 39.1 117 21 95/75 96 Nasal Cannula 4.0 03/22/17 20:30 95/75 03/22/17 20:21 116 27 96 03/22/17 20:01 93/60 03/22/17 19:51 115 24 96 03/22/17 19:40 117 20 93/60 96 Nasal Cannula 4.0 03/22/17 19:40 97 Nasal Cannula 4.0 03/22/17 19:39 96 Nasal Cannula 4.0 03/22/17 19:32 116 03/22/17 19:31 111/68 Physical Exam General Appearance: + pertinent finding (frail, chronically ill-looking) ENT: normal ENT inspection Neck: supple, no adenopathy Respiratory/Chest: chest non-tender, + decreased breath sounds, + rales, + wheezing (occasional) Cardiovascular: regular rate, rhythm, no edema, no gallop, no JVD, no murmur Abdomen: normal bowel sounds, non tender, soft, no organomegaly, no pulsatile mass Extremities: normal range of motion, non-tender Neurologic/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 tested, no motor/sensory deficits, alert, normal mood/affect, oriented x 3 Skin: normal color, warm/dry Laboratory Results Last 24 Hours Test 03/22/17 19:11 03/22/17 20:03 03/22/17 20:30 03/23/17 05:50 White Blood Count 10.68 K/uL 7.39 K/uL Red Blood Count 4.89 M/uL 4.20 M/uL Hemoglobin 15.0 g/dL 12.7 g/dL Hematocrit 43.9 % 37.8 % Mean Corpuscular Volume 89.8 fL 90.0 fL Mean Corpuscular Hemoglobin 30.7 pg 30.2 pg Mean Corpuscular Hemoglobin Concent 34.2 g/dl 33.6 g/dl Platelet Count 117 K/uL 90 K/uL Mean Platelet Volume 9.9 fL 9.6 fL Neutrophils (%) (Auto) 81.7 % Lymphocytes (%) (Auto) 6.7 % Monocytes (%) (Auto) 11.1 % Eosinophils (%) (Auto) 0.2 % Basophils (%) (Auto) 0.1 % Neutrophils # (Auto) 8.72 K/uL Lymphocytes # (Auto) 0.72 K/uL Monocytes # (Auto) 1.19 K/uL Eosinophils # (Auto) 0.02 K/uL Basophils # (Auto) 0.01 K/uL RDW Standard Deviation 43.8 fL 43.8 fL RDW Coefficient of Variation 13.3 % 13.2 % Immature Granulocyte % (Auto) 0.2 % Immature Granulocyte # (Auto) 0.02 K/uL Prothrombin Time 11.0 SECONDS Prothromb Time International Ratio 1.0 Activated Partial Thromboplast Time 27.1 SECONDS Partial Thromboplastin Ratio 1.0 Sodium Level 140 mmol/L 143 mmol/L Potassium Level 3.9 mmol/L 3.8 mmol/L Chloride Level 104 mmol/L 109 mmol/L Carbon Dioxide Level 31 mmol/L 30 mmol/L Anion Gap 5.0 mmol/L 4.0 mmol/L Blood Urea Nitrogen 17 mg/dl 18 mg/dl Creatinine 0.91 mg/dl 0.87 mg/dl Estimated GFR () 109.6 112.6 Estimated GFR (Non- 94.5 97.2 BUN/Creatinine Ratio 18.9 20.6 Random Glucose 117 mg/dl 88 mg/dl Calcium Level 8.9 mg/dl 8.2 mg/dl Magnesium Level 1.9 mg/dl Total Bilirubin 0.7 mg/dl Aspartate Amino Transf (AST/SGOT) 22 U/L Alanine Aminotransferase (ALT/SGPT) 32 U/L Alkaline Phosphatase 51 U/L Total Protein 6.6 gm/dl Albumin 3.4 gm/dl Globulin 3.2 gm/dl Albumin/Globulin Ratio 1.1 Valproic Acid (Depakene) Level 40 mcg/ml Bedside Lactic Acid Venous 1.44 mmol/L Urine Color DK YELLOW Urine Appearance CLEAR Urine pH 5.0 Urine Specific [place] 1.032 Urine Protein NEG Urine Glucose (UA) NEG Urine Ketones TRACE Urine Occult Blood NEG Urine Nitrite NEG Urine Bilirubin NEG Urine Urobilinogen NEG Urine Leukocyte Esterase NEG Urine WBC (Auto) 1-5 /hpf Urine RBC (Auto) 0-4 /hpf Urine Hyaline Casts (Auto) 1-5 /lpf Urine Epithelial Cells (Auto) 20-30 /lpf Urine Bacteria (Auto) NEG Platelet Estimate DECREASED Est Creatinine Clear Calc Drug Dose 92.8 ml/min Assessment and Plan 56-year-old male admitted on 03/22/2017 because of sepsis from hospital- acquired pneumonia, , he presented to the ER after he was found to be short of breath with low blood pressure and a temperature of 101.5 Fahrenheit. a past medical history of early onset dementia currently a resident at [facility] Sepsis likely secondary to pneumonia: Related to stable Pneumonia possible from aspiration, initially mechanical soft diet speech evaluation and treatment, - Chest x-ray upon admission : Mild interstitial thickening. An element of mild pulmonary vascular congestion cannot be excluded. No evidence of lobar consolidation Repeated two-view chest x-ray favor coby lower lobe pneumonia - Lactic acid at 1.44 upon admission will follow-up - UA unremarkable - Continue vancomycin and Zosyn - Was initially hypotensive and received a total of 3 L of NSS, for now is vital signs stable - Continue IV fluids - Tylenol as needed for fever - Oxygen per protocol Early onset dementia, stable, talked to patient's , the current mental status is in baseline (none verbal , none conversational and not follow-up commands) - Continue benztropine, Depakote, gabapentin, Haldol Chronic constipation: - Continue home bowel regimen DO NOT RESUSCITATE DVT prophylaxis: SCDs Disposition: Admitted to telemetry Called to patient's updated to her all the medical conditions, Continued [facility] stay due to: multiple IV medications needed Discharge planning: home
[2017-03-23] MEDS: ENOXAPARIN 40 MG/0.4 ML SYR SQ SCH (09:29)
--- NOTE | 2017-03-23 11:47 | Pharmacy Progress Note ---
Pharmacy Abx Initial Consult Date of Service Mar 23, 2017. Pharmacy Dosing Scope Date of Consult: 03/23/17 Consultation requested by: Dr. Winslow Pharmacy is consulted to initiate Vancomycin and Zosyn IV/PO dosing therapy, order appropriate labs and adjust drug dose/frequency. Subjective The patient is a 56 year old male admitted on Mar 22, 2017 at 22:39. Objective Height (Feet): 5 Height (Inches): 8.00 Weight (Kilograms): 75.000 Vital Signs (Past 12Hrs) Vital Signs Past 12 Hours Date Time Temp Pulse Resp B/P (MAP) Pulse Ox O2 Delivery O2 Flow Rate FiO2 03/23/17 07:30 37.6 95 20 106/45 (65) 93 Nasal Cannula 2.0 03/23/17 04:24 36.8 95 20 123/75 (91) 95 Nasal Cannula 2.0 03/23/17 04:00 Nasal Cannula 2.0 03/23/17 00:51 36.9 94 18 98/50 96 Nasal Cannula 2.0 03/22/17 23:57 91 20 83/52 96 Nasal Cannula 2.0 Lab Results (24Hrs) Laboratory Tests (24 Hours) Test 03/22/17 19:11 03/23/17 05:50 White Blood Count 10.68 K/uL (4.8-10.8) 7.39 K/uL (4.8-10.8) Red Blood Count 4.89 M/uL (4.7-6.1) Hemoglobin 15.0 g/dL (14.0-18.0) Hematocrit 43.9 % (42-52) Mean Corpuscular Volume 89.8 fL (80-100) Mean Corpuscular Hemoglobin 30.7 pg (25-34) Mean Corpuscular Hemoglobin Concent 34.2 g/dl (32-36) Platelet Count 117 K/uL (130-400) L Mean Platelet Volume 9.9 fL (7.4-10.4) Neutrophils (%) (Auto) 81.7 % Lymphocytes (%) (Auto) 6.7 % Monocytes (%) (Auto) 11.1 % Eosinophils (%) (Auto) 0.2 % Basophils (%) (Auto) 0.1 % Neutrophils # (Auto) 8.72 K/uL (1.4-6.5) H Lymphocytes # (Auto) 0.72 K/uL (1.2-3.4) L Monocytes # (Auto) 1.19 K/uL (0.11-0.59) H Eosinophils # (Auto) 0.02 K/uL (0-0.5) Basophils # (Auto) 0.01 K/uL (0-0.2) Erythrocyte Sedimentation Rate 2 mm/hr (0-14) Micro Results Date/Time Source Procedure Growth Status 03/22/17 19:50 Blood Blood Culture Pending Received 03/22/17 19:42 Blood Blood Culture Pending Received 03/23/17 01:06 Nasal MRSA DNA Surveillance Screen - Final Specimen Negative for MRSA by DNA Probe Complete Risk Factors for Resistance * Resident in a care home or extended-care facility Assessment & Plan Assessment 56 year old male on empiric antibiotics for sepsis secondary pneumonia, possible aspiration * care home resident Plan Continue Vancomycin and Zosyn for treatment of sepsis/pna Vancomycin IV * Pt received 1000 mg IV in ER on 03/22 @ 2257 * Started on 1250 mg IV (16.8 mg/kg) every 10 hours on 03/23 am * Goal trough level for sepsis/pna: 15 to 20 mcg/mL * Trough level ordered for 03/24/17 * MRSA nasal swab negative - if preliminary BC are negative, consider discontinuation of Vancomycin Piperacillin/tazobactam * 4. g bolus administered over 30 minutes, then 3.375 g IV extended infusion every 8 hours for CrCl greater than 20 mL/min Pharmacy will continue to follow and will adjust dose/frequency as necessary. Thank you.
[2017-03-23] MEDS: VENLAFAXINE HCL XR 75 MG CAPXR PO SCH (19:47)
[2017-03-24] VITALS (7 sets, daily range): BP systolic 108–116; BP diastolic 64–97; PULSE 68–108; TEMP 36.5–37.8; O2SAT 95–99
[2017-03-24] MEDS: PIPERACILL/TAZOBAC IV 3.375 GM in DEXTROSE 5% 100ML 100 ML IV SCH ×3 (01:39→18:11)
[2017-03-24] MEDS: SODIUM CHLORIDE 0.9% 1000ML 1,000 ML IV SCH (04:35)
[2017-03-24 05:51] LABS: HEMATOCRIT 33.2 % (42-52); MEAN CELL VOLUME 88.1 fL (80-100); MEAN CORPUSCULAR HEMOGLOBIN 31.3 pg (25-34); MEAN CORPUSCULAR HGB CONC 35.5 g/dl (32-36); RED BLOOD COUNT 3.77 M/uL (4.7-6.1)
[2017-03-24 05:56] LABS: EOS % 1.3 %; LYMPH % 14.2 %; LYMPH ABS # 0.75 K/uL (1.2-3.4); NEUT % 70.5 %; PLATELET COUNT 88 K/uL (130-400)
[2017-03-24 06:14] LABS: COMPLETE YES
[2017-03-24 06:35] LABS: BUN/CREATININE RATIO 15.1 (10-20); C-REACTIVE PROTEIN 10.3 mg/dl (0-0.29); CALCIUM 8.4 mg/dl (8.5-10.1); CREATININE 0.76 mg/dl (0.60-1.40); MAGNESIUM 1.8 mg/dl (1.8-2.4); POTASSIUM 3.4 mmol/L (3.5-5.1)
[2017-03-24] MEDS: BENZTROPINE MESYLATE 1 MG TAB PO SCH ×2 (08:07→22:11)
[2017-03-24] MEDS: DIVALPROEX SODIUM SPRINKLE 125 MG CAP PO SCH ×2 (08:08→22:12)
[2017-03-24] MEDS: DOCUSATE SODIUM 100 MG CAP PO SCH ×2 (08:08→22:12)
[2017-03-24] MEDS: GABAPENTIN 600 MG TAB PO SCH ×3 (08:09→22:11)
[2017-03-24] MEDS: HALOPERIDOL 5 MG TAB PO SCH ×2 (08:09→22:11)
[2017-03-24] MEDS: POLYETHYLENE (MIRALAX) 17 GM PACK PO SCH ×2 (08:09→22:13)
[2017-03-24] MEDS: ENOXAPARIN 40 MG/0.4 ML SYR SQ SCH (08:10)
[2017-03-24] MEDS: SENNA 8.6 MG TAB PO SCH ×2 (08:10→22:10)
[2017-03-24] MEDS: LANSOPRAZOLE SOLUTAB 30 MG PO SCH (08:10)
[2017-03-24] MEDS: BOOST VANILLA PO SCH ×6 (08:17→16:48)
[2017-03-24] MEDS ORDERED: VANCOMYCIN TROUGH SCH (09:30)
[2017-03-24] MEDS: VANCOMYCIN INJ 1,250 MG in SODIUM CHLORIDE 0.9% 250ML 250 ML IV SCH (10:03)
--- NOTE | 2017-03-24 12:30 | Pharmacy Progress Note ---
Pharmacy Abx Dose Progress Nt Date of Service Mar 24, 2017. Pharmacy Dosing Scope The patient is currently receiving the following antimicrobial agents per Pharmacy consult: -Vancomycin 1250 mg IV every 10 hours -Zosyn 3.375g IV every 8 hours (extended infusion) Objective Height (Feet): 5 Height (Inches): 8.00 Weight (Kilograms): 75.000 Vital Signs (Past 12Hrs) Vital Signs Past 12 Hours Date Time Temp Pulse Resp B/P (MAP) Pulse Ox O2 Delivery O2 Flow Rate FiO2 03/24/17 08:00 Nasal Cannula 2.0 03/24/17 07:50 37.4 86 20 116/64 (81) 98 Nasal Cannula 2.0 03/24/17 04:07 37.5 106 25 112/70 (84) 98 Nasal Cannula 2.0 03/24/17 04:00 97 Nasal Cannula 2.0 Lab Results (24Hrs) Laboratory Tests (24 Hours) Test 03/24/17 05:28 C-Reactive Protein 10.30 mg/dl (0-0.29) H White Blood Count 5.30 K/uL (4.8-10.8) Red Blood Count 3.77 M/uL (4.7-6.1) L Hemoglobin 11.8 g/dL (14.0-18.0) L Hematocrit 33.2 % (42-52) L Mean Corpuscular Volume 88.1 fL (80-100) Mean Corpuscular Hemoglobin 31.3 pg (25-34) Mean Corpuscular Hemoglobin Concent 35.5 g/dl (32-36) Platelet Count 88 K/uL (130-400) L Mean Platelet Volume 9.0 fL (7.4-10.4) Neutrophils (%) (Auto) 70.5 % Lymphocytes (%) (Auto) 14.2 % Monocytes (%) (Auto) 14.0 % Eosinophils (%) (Auto) 1.3 % Basophils (%) (Auto) 0.0 % Neutrophils # (Auto) 3.74 K/uL (1.4-6.5) Lymphocytes # (Auto) 0.75 K/uL (1.2-3.4) L Monocytes # (Auto) 0.74 K/uL (0.11-0.59) H Eosinophils # (Auto) 0.07 K/uL (0-0.5) Basophils # (Auto) 0.00 K/uL (0-0.2) Micro Results Date/Time Source Procedure Growth Status 03/22/17 19:50 Blood Blood Culture - Preliminary NO GROWTH TO DATE. Resulted 03/22/17 19:42 Blood Blood Culture - Preliminary NO GROWTH TO DATE. Resulted 03/23/17 01:06 Nasal MRSA DNA Surveillance Screen - Final Specimen Negative for MRSA by DNA Probe Complete Risk Factors for Resistance * Resident in a chcf or extended-care facility Assessment & Plan Assessment 56 year old male on empiric antibiotics for sepsis secondary pneumonia, possible aspiration * negative MRSA swab, negative preliminary BC Plan Continue Vancomycin and Zosyn for treatment of sepsis/pna Vancomycin IV * Trough level of 10.1 mcg/mL is subtherapeutic * Increase to 1350 mg (18 mg/kg) IV every 8 hours * Goal trough level for sepsis/pna: 15 to 20 mcg/mL * Trough level ordered for 03/26/17 * Discussed possible discontinuation of Vancomycin with provider due to negative MRSA nasal swab * provider wishes to continue for now per patient is poor historian and source of infection unclear Piperacillin/tazobactam * Continue 3.375 g IV extended infusion every 8 hours for CrCl greater than 20 mL/min Pharmacy will continue to follow and will adjust dose/frequency as necessary. Thank you.
[2017-03-24] MEDS: POTASSIUM CHLR 10 MEQ / WTR 10 MEQ in PREMIXED WATER 100 ML IV SCH ×2 (13:51→16:02)
[2017-03-24] MEDS: VANCOMYCIN INJ 1,350 MG in SODIUM CHLORIDE 0.9% 250ML 250 ML IV SCH (16:02)
--- NOTE | 2017-03-24 16:25 | Progress Note ---
Subjective Date of Service: Mar 24, 2017. Subjective Pt evaluation today including: conversation w/ patient, conversation w/ family , physical exam, chart review, lab review, review of studies, conversation w/ technical services consultant, review of inpatient medication list Examining patient together with , nonverbal, confused, only minimal opening his eyes when she talked to him, report it is in the baseline Problem List Medical Problems: (1) Abdominal pain Status: Acute (2) Agitation Status: Acute (3) Ascites Status: Acute (4) Constipation Status: Acute (5) Dehydration Status: Acute (6) Dehydration Status: Acute (7) Fever Status: Acute (8) Pneumonia Status: Acute Review of Systems Constitutional: + problem reported (not able to obtained because of decreased mental status ) Objective Vital Signs Date Time Temp Pulse Resp B/P (MAP) Pulse Ox O2 Delivery O2 Flow Rate FiO2 03/24/17 15:26 36.9 68 18 109/78 (88) 99 Nasal Cannula 2.0 03/24/17 12:00 Nasal Cannula 2.0 03/24/17 11:07 37.2 75 20 111/75 (87) 99 Nasal Cannula 2.0 03/24/17 08:00 Nasal Cannula 2.0 03/24/17 07:50 37.4 86 20 116/64 (81) 98 Nasal Cannula 2.0 03/24/17 04:07 37.5 106 25 112/70 (84) 98 Nasal Cannula 2.0 03/24/17 04:00 97 Nasal Cannula 2.0 03/24/17 00:04 37.8 108 24 108/97 (101) 97 Nasal Cannula 1.5 03/23/17 23:59 97 Nasal Cannula 2.0 03/23/17 21:30 37.1 03/23/17 20:00 97 Nasal Cannula 2.0 03/23/17 19:43 38.4 115 24 128/88 (101) 97 Nasal Cannula 2.0 Physical Exam General Appearance: WD/WN, no apparent distress, + thin, + pertinent finding ( frail, chronically ill-looking, much older than his age) Eyes: normal inspection, PERRL, EOMI, sclerae normal ENT: normal ENT inspection, hearing grossly normal, pharynx normal Neck: supple, no adenopathy, thyroid normal, no JVD, no carotid bruits, trachea midline Respiratory/Chest: chest non-tender, normal breath sounds, no respiratory distress, no accessory muscle use, + decreased breath sounds Cardiovascular: regular rate, rhythm, no edema, no gallop, no JVD, no murmur Abdomen: normal bowel sounds, non tender, soft, no organomegaly, no pulsatile mass Extremities: normal range of motion, non-tender, normal inspection, no pedal edema, no calf tenderness, normal capillary refill, pelvis stable 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, no motor/sensory deficits, alert, normal mood/affect, oriented x 3, + pertinent finding (more frequent episodic shaking per ) Skin: normal color, warm/dry, no rash Lymphatic: no adenopathy Laboratory Results Last 24 Hours Test 03/24/17 05:28 03/24/17 09:27 White Blood Count 5.30 K/uL Red Blood Count 3.77 M/uL Hemoglobin 11.8 g/dL Hematocrit 33.2 % Mean Corpuscular Volume 88.1 fL Mean Corpuscular Hemoglobin 31.3 pg Mean Corpuscular Hemoglobin Concent 35.5 g/dl Platelet Count 88 K/uL Mean Platelet Volume 9.0 fL Neutrophils (%) (Auto) 70.5 % Lymphocytes (%) (Auto) 14.2 % Monocytes (%) (Auto) 14.0 % Eosinophils (%) (Auto) 1.3 % Basophils (%) (Auto) 0.0 % Neutrophils # (Auto) 3.74 K/uL Lymphocytes # (Auto) 0.75 K/uL Monocytes # (Auto) 0.74 K/uL Eosinophils # (Auto) 0.07 K/uL Basophils # (Auto) 0.00 K/uL RDW Standard Deviation 41.5 fL RDW Coefficient of Variation 12.8 % Immature Granulocyte % (Auto) 0.0 % Immature Granulocyte # (Auto) 0.00 K/uL Sodium Level 140 mmol/L Potassium Level 3.4 mmol/L Chloride Level 107 mmol/L Carbon Dioxide Level 29 mmol/L Anion Gap 4.0 mmol/L Blood Urea Nitrogen 12 mg/dl Creatinine 0.76 mg/dl Est Creatinine Clear Calc Drug Dose 106.3 ml/min Estimated GFR () 119.0 Estimated GFR (Non- 102.7 BUN/Creatinine Ratio 15.1 Random Glucose 112 mg/dl Calcium Level 8.4 mg/dl Magnesium Level 1.8 mg/dl C-Reactive Protein 10.30 mg/dl Vancomycin Level Trough 10.1 mcg/ml Assessment and Plan 56-year-old male admitted on 03/22/2017 because of sepsis from hospital- acquired pneumonia, , he presented to the ER after he was found to be short of breath with low blood pressure and a temperature of 101.5 Fahrenheit. a past medical history of early onset dementia currently a resident at [facility] Sepsis likely secondary to pneumonia: doing the same, relative stable Pneumonia possible from aspiration , he was cough in the physical exam yesterday initially mechanical soft diet speech evaluation and treatment, - Chest x-ray upon admission : Mild interstitial thickening. An element of mild pulmonary vascular congestion cannot be excluded. No evidence of lobar consolidation Repeated two-view chest x-ray favor coby lower lobe pneumonia - Lactic acid at 1.44 upon admission will follow-up - UA unremarkable - Nare culture for MRSA is negative , - For now i am Continue vancomycin and Zosyn because still have spiking fever last evening as 38.4, and patient nonverbal and the condition may be more complex - Was initially hypotensive and received a total of 3 L of NSS, for now is vital signs stable - Continue IV fluids - Tylenol as needed for fever - Oxygen per protocol Early onset dementia, with small shaking Obviously patient has no chill, talked to patient's , the current mental status is in baseline (none verbal , none conversational and not follow-up commands, and shaking) - Continue benztropine, Depakote, gabapentin, Haldol Chronic constipation: - Continue home bowel regimen DO NOT RESUSCITATE DVT prophylaxis: SCDs Disposition: Admitted to telemetry Discussed patient's updated to her all the medical conditions in bedside Continued [facility] stay due to: multiple IV medications needed Discharge planning: home
[2017-03-24] MEDS: VENLAFAXINE HCL XR 75 MG CAPXR PO SCH (22:11)
[2017-03-25] VITALS (8 sets, daily range): BP systolic 110–132; BP diastolic 64–85; PULSE 65–69; TEMP 36.2–36.9; O2SAT 93–97
[2017-03-25] MEDS: SODIUM CHLORIDE 0.9% 1000ML 1,000 ML IV SCH ×2 (00:21→00:35)
[2017-03-25] MEDS: VANCOMYCIN INJ 1,350 MG in SODIUM CHLORIDE 0.9% 250ML 250 ML IV SCH ×4 (00:23→08:08)
[2017-03-25] MEDS: PIPERACILL/TAZOBAC IV 3.375 GM in DEXTROSE 5% 100ML 100 ML IV SCH ×3 (02:25→17:34)
[2017-03-25] MEDS: BOOST VANILLA PO SCH ×6 (07:30→17:32)
[2017-03-25] MEDS: ENOXAPARIN 40 MG/0.4 ML SYR SQ SCH (08:09)
[2017-03-25] MEDS: POLYETHYLENE (MIRALAX) 17 GM PACK PO SCH ×2 (08:09→20:05)
[2017-03-25] MEDS: SENNA 8.6 MG TAB PO SCH ×2 (08:09→20:05)
[2017-03-25] MEDS: DOCUSATE SODIUM 100 MG CAP PO SCH ×2 (08:10→20:04)
[2017-03-25] MEDS: DIVALPROEX SODIUM SPRINKLE 125 MG CAP PO SCH ×2 (08:10→20:04)
[2017-03-25] MEDS: GABAPENTIN 600 MG TAB PO SCH ×4 (08:11→20:03)
[2017-03-25] MEDS: LANSOPRAZOLE SOLUTAB 30 MG PO SCH (08:11)
[2017-03-25] MEDS: HALOPERIDOL 5 MG TAB PO SCH ×2 (08:11→20:15)
[2017-03-25] MEDS: BENZTROPINE MESYLATE 1 MG TAB PO SCH ×2 (08:11→20:05)
--- NOTE | 2017-03-25 12:41 | Medical Student: [facility] ---
Med Student Progress Note Date of Service Mar 25, 2017. Subjective Pt evaluation today including: physical exam, chart review, lab review Per nursing, had 3 episodes of diarrhea last night. No episodes since 7am this morning. He did eat his entire breakfast. Continues with good UOP in James catheter. Per nursing no cough, breathing well. Review of Systems Notes: Cannot obtain - patient is nonverbal Objective Vital Signs Date Time Temp Pulse Resp B/P (MAP) Pulse Ox O2 Delivery O2 Flow Rate FiO2 03/25/17 12:00 36.9 67 18 110/64 (79) 97 Room Air 03/25/17 08:00 36.5 65 20 115/72 (86) 93 Room Air 03/25/17 04:00 36.4 65 16 118/78 (91) 94 Room Air 03/25/17 04:00 Room Air 03/25/17 00:00 36.8 69 16 115/85 (95) 94 Nasal Cannula 1.5 03/25/17 00:00 Room Air 03/24/17 20:17 36.5 69 18 108/78 (88) 95 Nasal Cannula 2.0 03/24/17 20:00 Nasal Cannula 2.0 03/24/17 16:00 Nasal Cannula 2.0 03/24/17 15:26 36.9 68 18 109/78 (88) 99 Nasal Cannula 2.0 Physical Exam General Appearance: WD/WN, no apparent distress Eyes: bilateral eyes PERRL, bilateral eyes EOMI Neck: supple, no adenopathy Respiratory/Chest: lungs clear, normal breath sounds Cardiovascular: regular rate, rhythm, no edema, no gallop, no murmur Abdomen: normal bowel sounds, soft Extremities: non-tender, normal inspection Neurologic/Psychiatric: alert, + pertinent finding (nonverbal, alert and looks around the room) Medications Current Inpatient Medications Medications (Trade) Dose Ordered Sig/Helene Route Start Time Stop Time Status Last Admin Dose Admin Acetaminophen (Tylenol Tab) 650 mg Q4H PRN PO 03/22/17 22:45 04/21/17 22:44 03/23/17 19:46 650 MG Al Hydrox/Mg Hydrox/Simethicone (Maalox Max Susp) 15 ml Q4H PRN PO 03/22/17 22:45 04/21/17 22:44 Ondansetron HCl (Zofran Inj) 4 mg Q6H PRN IV 03/22/17 22:45 04/21/17 22:44 Nitroglycerin (Nitrostat Tab) 0.4 mg UD PRN SL 03/22/17 22:45 04/21/17 22:44 Polyethylene (Miralax Powder Packet) 17 gm DAILY PRN PO 03/22/17 22:45 04/21/17 22:44 Benztropine Mesylate (Cogentin Tab) 1 mg BID PO 03/23/17 09:00 04/22/17 08:59 03/25/17 08:11 1 MG Divalproex Sodium (Depakote Sprinkle Cap) 500 mg BID PO 03/23/17 09:00 04/22/17 08:59 03/25/17 08:10 500 MG Gabapentin (Neurontin Tab) 600 mg TID PO 03/23/17 09:00 04/22/17 08:59 03/25/17 08:11 600 MG Haloperidol (Haldol Tab) 5 mg BID PO 03/23/17 09:00 04/22/17 08:59 03/25/17 08:11 5 MG Lansoprazole (Prevacid Solutab) 30 mg QAM PO 03/23/17 09:00 04/22/17 08:59 03/25/17 08:11 30 MG Magnesium Hydroxide (Milk Of Magnesia Susp) 30 ml DAILY PRN PO 03/22/17 22:45 04/21/17 22:44 Senna (Senokot Tab) 8.6 mg BID PO 03/23/17 09:00 04/22/17 08:59 03/25/17 08:09 8.6 MG Venlafaxine HCl (effeXOR EXTENDED REL CAP) 75 mg HS PO 03/23/17 21:00 04/22/17 20:59 03/24/17 22:11 75 MG Docusate Sodium (coLACE CAP) 200 mg BID PO 03/23/17 09:00 04/22/17 08:59 03/25/17 08:10 200 MG Enteral Nutritional Formula (Boost) 1 can TIDM PO 03/23/17 07:30 04/22/17 07:59 03/24/17 16:48 1 CAN Bisacodyl (Dulcolax Supp) 10 mg DAILY PRN AL 03/22/17 23:15 04/21/17 23:14 Sodium Biphosphate/ Sodium Phosphate (Fleet Enema) 132 ml DAILY PRN AL 03/22/17 23:15 04/21/17 23:14 Polyethylene (Miralax Powder Packet) 17 gm BID PO 03/23/17 09:00 04/22/17 08:59 03/25/17 08:09 17 GM Enoxaparin Sodium (Lovenox Inj) 40 mg DAILY SQ 03/23/17 09:00 04/22/17 08:59 03/25/17 08:09 40 MG Piperacillin Sod/ Tazobactam Sod 3.375 gm/Dextrose 115 ml @ 28.75 mls/ hr Q8H IV 03/23/17 02:00 03/30/17 01:59 03/25/17 11:44 28.75 MLS/HR Piperacillin Sod/ Tazobactam Sod (Consult) 1 ea UD PRN N/A 03/23/17 01:45 04/22/17 01:44 Assessment and Plan Assessment and Plan: 56 year old male resident of [facility] with a past medical history of advanced early onset Alzheimers dementia who presented on 03/22 with shortness of breath, hypotension and fever found to have bibasilar opacities on chest XR consistent with pneumonia. Presentation is consistent with sepsis - meets SIRS criteria ( T >38, RR > 20, HR >90) plus the chest XR. Also meets SOFA criteria with platelets < 100 and MAP <70. On day 3 of broad spectrum antibiotics and doing well clinically. Sepsis secondary to pneumonia - met both SOFA criteria and SIRS criteria as above - on day 3/7 of vancomycin and zosyn, will discontinue vancomycin due to negative MRSA nasal swab - discontinue IVF as patient is eating and drinking and vital signs have been stable and has been satting >92% on room air - consider switching to oral abx tomorrow if he continues to improve Alzheimers Dementia - continue benztropine, depakote, gabapentin, haldol Diarrhea - hold miralax - if any further episodes will obtain stool culture to check for C.diff FEN: regular diet PPx: SCDs Dispo: transfer to med/surg, discontinue telemetry as vital signs have been stable DNI/DNR Continued [facility] stay due to: multiple IV medications needed Discharge planning: custodial facility
--- NOTE | 2017-03-25 13:51 | Progress Note ---
Subjective Date of Service: Mar 25, 2017. Subjective Pt evaluation today including: conversation w/ patient, conversation w/ family , physical exam, lab review, review of inpatient medication list Pain: no pain PO Intake: adequate Voiding: no voiding problems patient awake and alert, no signs of distress, he is non-verbal reviewed lab work from previous day updated family members at the bedside per RN, he had a few loose BM's this AM Problem List Medical Problems: (1) Abdominal pain Status: Acute (2) Agitation Status: Acute (3) Ascites Status: Acute (4) Constipation Status: Acute (5) Dehydration Status: Acute (6) Dehydration Status: Acute (7) Fever Status: Acute (8) Pneumonia Status: Acute Review of Systems cannot review, non-verbal Medications Current Inpatient Medications Medications (Trade) Dose Ordered Sig/Helene Route Start Time Stop Time Status Last Admin Dose Admin Acetaminophen (Tylenol Tab) 650 mg Q4H PRN PO 03/22/17 22:45 04/21/17 22:44 03/23/17 19:46 650 MG Al Hydrox/Mg Hydrox/Simethicone (Maalox Max Susp) 15 ml Q4H PRN PO 03/22/17 22:45 04/21/17 22:44 Ondansetron HCl (Zofran Inj) 4 mg Q6H PRN IV 03/22/17 22:45 04/21/17 22:44 Nitroglycerin (Nitrostat Tab) 0.4 mg UD PRN SL 03/22/17 22:45 04/21/17 22:44 Polyethylene (Miralax Powder Packet) 17 gm DAILY PRN PO 03/22/17 22:45 04/21/17 22:44 Benztropine Mesylate (Cogentin Tab) 1 mg BID PO 03/23/17 09:00 04/22/17 08:59 03/25/17 08:11 1 MG Divalproex Sodium (Depakote Sprinkle Cap) 500 mg BID PO 03/23/17 09:00 04/22/17 08:59 03/25/17 08:10 500 MG Gabapentin (Neurontin Tab) 600 mg TID PO 03/23/17 09:00 04/22/17 08:59 03/25/17 08:11 600 MG Haloperidol (Haldol Tab) 5 mg BID PO 03/23/17 09:00 04/22/17 08:59 03/25/17 08:11 5 MG Lansoprazole (Prevacid Solutab) 30 mg QAM PO 03/23/17 09:00 04/22/17 08:59 03/25/17 08:11 30 MG Magnesium Hydroxide (Milk Of Magnesia Susp) 30 ml DAILY PRN PO 03/22/17 22:45 04/21/17 22:44 Senna (Senokot Tab) 8.6 mg BID PO 03/23/17 09:00 04/22/17 08:59 03/25/17 08:09 8.6 MG Venlafaxine HCl (effeXOR EXTENDED REL CAP) 75 mg HS PO 03/23/17 21:00 04/22/17 20:59 03/24/17 22:11 75 MG Docusate Sodium (coLACE CAP) 200 mg BID PO 03/23/17 09:00 04/22/17 08:59 03/25/17 08:10 200 MG Enteral Nutritional Formula (Boost) 1 can TIDM PO 03/23/17 07:30 04/22/17 07:59 03/24/17 16:48 1 CAN Bisacodyl (Dulcolax Supp) 10 mg DAILY PRN MT 03/22/17 23:15 04/21/17 23:14 Sodium Biphosphate/ Sodium Phosphate (Fleet Enema) 132 ml DAILY PRN MT 03/22/17 23:15 04/21/17 23:14 Polyethylene (Miralax Powder Packet) 17 gm BID PO 03/23/17 09:00 04/22/17 08:59 03/25/17 08:09 17 GM Enoxaparin Sodium (Lovenox Inj) 40 mg DAILY SQ 03/23/17 09:00 04/22/17 08:59 03/25/17 08:09 40 MG Piperacillin Sod/ Tazobactam Sod 3.375 gm/Dextrose 115 ml @ 28.75 mls/ hr Q8H IV 03/23/17 02:00 03/30/17 01:59 03/25/17 11:44 28.75 MLS/HR Piperacillin Sod/ Tazobactam Sod (Consult) 1 ea UD PRN N/A 03/23/17 01:45 04/22/17 01:44 Objective Vital Signs Date Time Temp Pulse Resp B/P (MAP) Pulse Ox O2 Delivery O2 Flow Rate FiO2 03/25/17 13:15 67 20 118/70 (86) 96 Room Air 03/25/17 12:00 36.9 67 18 110/64 (79) 97 Room Air 03/25/17 08:00 36.5 65 20 115/72 (86) 93 Room Air 03/25/17 04:00 36.4 65 16 118/78 (91) 94 Room Air 03/25/17 04:00 Room Air 03/25/17 00:00 36.8 69 16 115/85 (95) 94 Nasal Cannula 1.5 03/25/17 00:00 Room Air 03/24/17 20:17 36.5 69 18 108/78 (88) 95 Nasal Cannula 2.0 03/24/17 20:00 Nasal Cannula 2.0 03/24/17 16:00 Nasal Cannula 2.0 03/24/17 15:26 36.9 68 18 109/78 (88) 99 Nasal Cannula 2.0 Physical Exam General Appearance: WD/WN, no apparent distress Eyes: normal inspection, EOMI, sclerae normal Neck: supple, no adenopathy, no JVD, trachea midline Respiratory/Chest: chest non-tender, lungs clear, normal breath sounds, no respiratory distress, no accessory muscle use Cardiovascular: regular rate, rhythm, no edema, no gallop, no JVD, no murmur Abdomen: normal bowel sounds, non tender, soft, no organomegaly Extremities: normal range of motion, non-tender, normal inspection, no pedal edema, no calf tenderness, pelvis stable 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 a past medical history of early onset dementia currently a resident at [facility] - Sepsis secondary to pneumonia, POA: sepsis resolved, BP and HR stable, afebrile, WBC normal, never had shock, he responded to fluids initially treated with Vanco and Zosyn, MRSA swab negative, will d/c the Vancomycin complete 7 days total of antibiotics likely transition to Augmentin BID tomorrow transfer to medical floor today d/c fluids, repeat labs tomorrow AM - Hypokalemia: was 3.4 yesterday, will repeat tomorrow AM Early onset dementia, with small shaking - Continue benztropine, Depakote, gabapentin, Haldol Chronic constipation: - hold bowel regimen with loose stools today DO NOT RESUSCITATE DVT prophylaxis: SCDs possible d/c back to SNF tomorrow Continued [facility] stay due to: multiple IV medications needed Discharge planning: halfway facility
[2017-03-25] MEDS: VENLAFAXINE HCL XR 75 MG CAPXR PO SCH (20:05)
[2017-03-25] MEDS ORDERED: VANCOMYCIN TROUGH SCH (23:30)
[2017-03-26] MEDS: PIPERACILL/TAZOBAC IV 3.375 GM in DEXTROSE 5% 100ML 100 ML IV SCH ×2 (01:55→09:58)
[2017-03-26 07:33] VITALS: BP 110/74; PULSE 69; TEMP 36.5; O2SAT 92
[2017-03-26 07:33] LABS: HEMATOCRIT 38.3 % (42-52); MEAN CELL VOLUME 87.6 fL (80-100); MEAN CORPUSCULAR HEMOGLOBIN 30.4 pg (25-34); MEAN CORPUSCULAR HGB CONC 34.7 g/dl (32-36); MEAN PLATELET VOLUME 9.6 fL (7.4-10.4); PLATELET COUNT 119 K/uL (130-400); RED BLOOD COUNT 4.37 M/uL (4.7-6.1); WHITE BLOOD COUNT 3.25 K/uL (4.8-10.8)
[2017-03-26 08:02] LABS: CALCIUM 8.8 mg/dl (8.5-10.1); CREATININE 0.7 mg/dl (0.60-1.40); POTASSIUM 3.7 mmol/L (3.5-5.1)
[2017-03-26] MEDS: BOOST VANILLA PO SCH ×4 (08:11→12:20)
[2017-03-26] MEDS: BENZTROPINE MESYLATE 1 MG TAB PO SCH (08:12)
[2017-03-26] MEDS: DOCUSATE SODIUM 100 MG CAP PO SCH (08:12)
[2017-03-26] MEDS: DIVALPROEX SODIUM SPRINKLE 125 MG CAP PO SCH (08:13)
[2017-03-26] MEDS: GABAPENTIN 600 MG TAB PO SCH ×2 (08:14→15:36)
[2017-03-26] MEDS: HALOPERIDOL 5 MG TAB PO SCH (08:14)
[2017-03-26] MEDS: LANSOPRAZOLE SOLUTAB 30 MG PO SCH (08:14)
[2017-03-26] MEDS: SENNA 8.6 MG TAB PO SCH (08:15)
[2017-03-26] MEDS: POLYETHYLENE (MIRALAX) 17 GM PACK PO SCH (08:22)
[2017-03-26] MEDS: ENOXAPARIN 40 MG/0.4 ML SYR SQ SCH (09:55)
[2017-03-26] MEDS ORDERED: AMOX875T PO (11:18)
--- NOTE | 2017-03-26 11:20 | Discharge Instructions ---
Discharge Instructions Date of Service Mar 26, 2017. Admission Reason for Admission: Sepsis Discharge Discharge Diagnosis / Problem: sepsis secondary to pneumonia, advanced dementia Discharge Goals Goal(s): Improve function, Improve disease control Activity Recommendations Activity Level: Bedrest Lifting Limitations: none Exercise/Sports Limitations: as tolerated Shower/Bathe: no limitations . Additional Information Patient informed of condition: Yes Advance Directives: Yes DNR: Yes Level of Care: Skilled Communicable Disease: No Prognosis: Stable Oxygen at (LPM): no James Catheter: No Instructions / Follow-Up Instructions / Follow-Up Medications: - AUGMENTIN: starting tonight, take 7 more doses to complete 7 days total treatment for pneumonia FOLLOW UP - physician at [facility] this week Current Hospital Diet Patient's current hospital diet: Regular Diet Discharge Diet Recommended Diet: Regular Diet Pending Studies Studies pending at discharge: no Physician Orders On Transfer POLST Discussion: Not Applicable Medical Emergencies . Who to Call and When: Medical Emergencies: If at any time you feel your situation is an emergency, please call 911 immediately. . Non-Emergent Contact Non-Emergency issues call your: Primary Care Provider Call Non-Emergent contact if: you have a fever, you have any medication questions . . "Provider Documentation" section prepared by Samm Schmidt. . Core Measure Problem Core Measures: None [place] Drug Monitoring Program Search Results: no issues identified
[2017-03-26 13:52] VITALS: BP 110/74; PULSE 69; TEMP 36.5; O2SAT 92
--- NOTE | 2017-03-27 07:13 | Discharge Summary ---
Discharge Summary Date of Service Mar 26, 2017. Discharge Summary Admission Date: Mar 22, 2017 at 22:39 Discharge Date: Mar 26, 2017 Discharge Disposition: [facility] facility Principal Diagnosis: Sepsis secondary to pneumonia Problems/Secondary Diagnoses: Early onset dementia Chronic constipation Immunizations: Have You Had Influenza Vaccine: Yes History of Tetanus Vaccine?: YES-1998 History of Pneumococcal: No History of Hepatitis B Vaccine: Unknown Procedures: none Consultations: none Medication Reconciliation New Medications: Amoxicillin & Pot Clavulanate (Augmentin 875-125 mg) 1 Tab Tab 1 TAB PO BID, #7 TAB Continued Medications: Acetaminophen (Tylenol) 325 Mg Tab 650 MG PO HS, TAB Acetaminophen (Tylenol) 325 Mg Tab 650 MG PO Q6 PRN for Pain, TAB Benztropine Mesylate (Benztropine Mesylate) 1 Mg Tab 1 MG PO BID Bisacodyl (Dulcolax) 10 Mg Sup 1 SUPP SD DAILY PRN for Constipation, SUP Divalproex Sodium (Depakote Sprinkle) 125 Mg Cap 500 MG PO BID, CAP Docusate Sodium (Dok) 100 Mg Tab 200 MG PO BID Gabapentin (Gabapentin) 600 Mg Tab 600 MG PO TID Haloperidol (Haldol) 5 Mg Tab 5 MG PO BID, TAB Lansoprazole (Prevacid Solutab) 30 Mg Tab 30 MG PO QAM for 30 Days, TAB Magnesium Hydroxide (Milk of Magnesia) 30 Ml Susp 30 ML PO DAILY PRN for Constipation Polyethylene Glycol 3350 (Miralax) 1 Pow Pow 17 GM PO BID, #255 GM Senna (Senna Lax) 8.6 Mg Tab 8.6 MG PO BID for 30 Days, TAB Sodium Phosphate/Biphosphate (Fleet Enema) Tamar 1 EA SD DAILY PRN for Constipation, BTL Venlafaxine Hcl (Effexor Xr) 75 Mg Cap 75 MG PO HS for 30 Days, CAP [Enteral Nutrition Formula] () 1 CAN LIQD 1 CAN PO TIDM for 30 Days Discharge Exam Patient was stable on the morning of discharge, breathing well, no issues overnight. He is eating, cleared by speech therapy for regular diet. Review of Systems: Constitutional: + problem reported (cannot complete a ROS, patient with dementia, non-verbal) Physical Exam: General Appearance: WD/WN, no apparent distress Eyes: normal inspection, EOMI, funduscopic exam normal ENT: normal ENT inspection, hearing grossly normal, pharynx normal Neck: supple, no adenopathy, no JVD, trachea midline Respiratory/Chest: chest non-tender, lungs clear, normal breath sounds, no respiratory distress, no accessory muscle use Cardiovascular: regular rate, rhythm, no edema, no gallop, no JVD, no murmur , normal peripheral pulses Abdomen / GI: normal bowel sounds, non tender, soft, no organomegaly Extremities: normal inspection, no calf tenderness, normal capillary refill , no pedal edema, normal range of motion, pelvis stable 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 a past medical history of early onset dementia currently a resident at [facility] - Sepsis secondary to pneumonia, POA: sepsis resolved, BP and HR stable, afebrile, WBC normal, never had shock, he responded to fluids initially treated with Vanco and Zosyn, MRSA swab negative, Vancomycin was discontinued complete 7 days total of antibiotics transition to Augmentin, will need 7 more doses starting evening of 03/26 d/c to [facility] on 03/26 - Hypokalemia: resolved, 3.7 on day of discharge Early onset dementia, with small shaking - Continue benztropine, Depakote, gabapentin, Haldol Chronic constipation: - continue bowel regimen DO NOT RESUSCITATE DVT prophylaxis: SCDs Total Time Spent: Greater than 30 minutes This includes examination of the patient, discharge planning, medication reconciliation, and communication with other providers. Discharge Instructions Please refer to the electronic Patient Visit Report (Discharge Instructions) for additional information. Follow-Up physician at [facility] in one week Additional Copies To [facility]
== END 2017-03-26 16:26 | DRG 871 ==
LOC: EDBD 19:21 → C.EDB 19:24 → C.2E 22:39 → ENRESERV 22:58 → C.4E 03-25 12:46
PROVIDERS: ADMIT Family Medicine; ATTEND Internal Medicine
DX: A41.9 Sepsis, unspecified organism (principal); J18.9 Pneumonia, unspecified organism; Y95 Nosocomial condition; E87.6 Hypokalemia; E86.0 Dehydration; R32 Unspecified urinary incontinence; K59.09 Other constipation; G30.0 Alzheimer's disease with early onset; F02.80 Dementia in other diseases classified elsewhere, unspecified severity, without behavioral disturbance, psychotic disturbance, mood disturbance, and anxiety; F39 Unspecified mood [affective] disorder; Z66 Do not resuscitate; Z87.891 Personal history of nicotine dependence; Z79.899 Other long term (current) drug therapy

== ENCOUNTER → 2017-04-01 | Outpatient (CLI) | payer BC ==
[~2017-04-01] MED LIST changes: -ACET-1256 PO; +ACET-1311 PO; +AMOX875T PO; +BISA10SU3 PR; +CGN1X PO; +DIVA125C PO; -DPKSP125 PO; +HALO5TAB PO; -HLDI IM; +MOMLX PO; -MRLP17 PO; +NRN600 PO; +POLY335019 PO; -QUET1TAB34 PO; -QUET1TAB37 PO; +SODIENE PR; -SRQ100 PO; -VENL1CAP92 PO
[2017-04-01 10:25] LABS: HEMATOCRIT 40.3 % (42-52); MEAN CELL VOLUME 90.2 fL (80-100); MEAN CORPUSCULAR HEMOGLOBIN 30.2 pg (25-34); MEAN CORPUSCULAR HGB CONC 33.5 g/dl (32-36); MEAN PLATELET VOLUME 8.9 fL (7.4-10.4); PLATELET COUNT 203 K/uL (130-400); RED BLOOD COUNT 4.47 M/uL (4.7-6.1); WHITE BLOOD COUNT 5.17 K/uL (4.8-10.8)
[2017-04-01 10:33] LABS: ALT/SGPT 34 U/L (12-78); AST/SGOT 11 U/L (15-37); BLOOD UREA NITROGEN 23 mg/dl (7-18); BUN/CREATININE RATIO 33.4 (10-20); CALCIUM 8.8 mg/dl (8.5-10.1); CARBON DIOXIDE 30 mmol/L (21-32); CHLORIDE 107 mmol/L (98-107); CREATININE 0.69 mg/dl (0.60-1.40); GLUCOSE 90 mg/dl (70-99); POTASSIUM 3.8 mmol/L (3.5-5.1); SODIUM 144 mmol/L (136-145)
[2017-04-01 10:36] LABS: ALKALINE PHOSPHATASE 39 U/L (45-117)
== END ==
LOC: C.LABUPUNI 09:34
PROVIDERS: ATTEND Family Medicine
DX: R56.9 Unspecified convulsions (principal); A41.50 Gram-negative sepsis, unspecified

== ENCOUNTER → 2017-04-15 | Outpatient (CLI) | payer BC ==
[~2017-04-15] MED LIST changes: -AMOX875T PO
== END ==
LOC: C.LABUPUNI 08:54
PROVIDERS: ATTEND Nurse Practitioner Family
DX: R56.9 Unspecified convulsions (principal)

== ENCOUNTER → 2017-05-03 | Outpatient (CLI) | payer BC ==
[2017-05-03 10:19] LABS: ALT/SGPT 18 U/L (12-78); BLOOD UREA NITROGEN 20 mg/dl (7-18); BUN/CREATININE RATIO 24.6 (10-20); CALCIUM 9.4 mg/dl (8.5-10.1); CARBON DIOXIDE 35 mmol/L (21-32); CHLORIDE 105 mmol/L (98-107); CREATININE 0.82 mg/dl (0.60-1.40); GLUCOSE 85 mg/dl (70-99); POTASSIUM 3.9 mmol/L (3.5-5.1); SODIUM 143 mmol/L (136-145)
[2017-05-03 10:22] LABS: ALB/GLOB RATIO 1.2 (0.9-2); ALKALINE PHOSPHATASE 46 U/L (45-117); AST/SGOT 7 U/L (15-37)
== END ==
LOC: C.LABUPUNI 09:19
PROVIDERS: ATTEND Nurse Practitioner Family
DX: R56.9 Unspecified convulsions (principal)

== ENCOUNTER → 2017-05-16 | Outpatient (CLI) | payer BC | LOC: C.LABUPNIT 08:47 | PROVIDERS: ATTEND Nurse Practitioner Family | DX: R56.9 Unspecified convulsions (principal) ==

== ENCOUNTER → 2017-05-25 | Outpatient (CLI) | payer BC | LOC: C.LABUPUNI 09:17 | PROVIDERS: ATTEND Nurse Practitioner Family | DX: R56.9 Unspecified convulsions (principal) ==

== ENCOUNTER → 2017-08-08 | Outpatient (CLI) | payer BC ==
[~2017-08-08] MED LIST changes: +BENZ-88 PO; -CGN1X PO
== END | disposition home or self-care (01) ==
LOC: C.LABUPUNI 08:28
PROVIDERS: ATTEND Nurse Practitioner Family
DX: R56.9 Unspecified convulsions (principal)